=== PATIENT | female | born 1970 | race Caucasian/White ===

== ENCOUNTER → 2017-04-01 | Emergency (ER) | payer MEDICAID ==
[2017-04-01 10:54] VITALS: BP 103/55; PULSE 78; RESP 16; TEMP 97.7; O2SAT 97
--- NOTE | 2017-04-01 11:31 | CPEKG ---
Heart Rate: 80 RR Interval: 750 P-R Interval: 144 QRSD Interval: 68 QT Interval: 380 QTC Interval: 439 P Dolores: 15 QRS Dolores: 5 T Wave Dolores: 18 EKG Severity - NORMAL ECG - EKG Impression: SINUS RHYTHM Electronically Signed By: Miguel Stephenson 01-Apr-2017 15:18:50
== END | disposition left against medical advice (07) ==
DX: Z53.21 Procedure and treatment not carried out due to patient leaving prior to being seen by health care provider (principal)